=== PATIENT | male | born 1990 | race Caucasian/White ===

== ENCOUNTER 2018-02-13 14:56 | Emergency (ER) | payer OTHER ==
[~2018-02-13] VITALS: Ht 172.7 cm; Wt 104.8 kg
--- NOTE | 2018-02-13 15:00 | NUR ---
PT BIBRA FROM HOME TO ER BED 10. PRESENTS W/ L SHOULDER PAIN. POSSIBLE DISLOCATION. PT STATES MULTIPLE HX OF DISLOCATION. 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 AWAITING MD HERNADEZ.
[2018-02-13] MEDS ORDERED: ACETAMINOPHEN ES 500 MG TABLET ONE (15:53)
[2018-02-13] MEDS ORDERED: ACETAMINOPHEN ES 500 MG TABLET PO ONE (16:00)
--- NOTE | 2018-02-13 16:31 | NUR ---
L SHOULDER MANUALLY REDUCED BY ERMD. SHOULDER IMMOBILIZER APPLIED. PT D/C HOME ,IN STABLE CONDITION.
[2018-02-13 16:33] VITALS: BP 135/84
== END 2018-02-13 17:02 | disposition home or self-care (01) ==
LOC: ER 16:08
DX: S43.085A Other dislocation of left shoulder joint, initial encounter (principal); J45.909 Unspecified asthma, uncomplicated; X58.XXXA Exposure to other specified factors, initial encounter; Y93.89 Activity, other specified; Y92.89 Other specified places as the place of occurrence of the external cause; Y99.8 Other external cause status
CPT/HCPCS: A4606; Z7610

== ENCOUNTER 2018-05-30 06:55 | Emergency (ER) | payer OTHER ==
[~2018-05-30] VITALS: Ht 172.7 cm; Wt 108.0 kg
--- NOTE | 2018-05-30 07:15 | NUR ---
BIB FRIEND. C/O "NOTICED B L E SWELLING AFTER SMOKING POT" -SOB. -N/V , TO ER BED 2, HOOKED TO MONITOR, PROVIDED WITH WARM BLANKET, DR WILLOUGHBY AT BEDSIDE FOR EVAL.
[2018-05-30 07:51] VITALS: BP 143/68
--- NOTE | 2018-05-30 08:15 | NUR ---
US TECH AT BEDSIDE
== END 2018-05-30 08:36 | disposition home or self-care (01) ==
LOC: ER 07:02
DX: R60.0 Localized edema (principal); J45.909 Unspecified asthma, uncomplicated; F32.9 Major depressive disorder, single episode, unspecified; F41.9 Anxiety disorder, unspecified; F84.0 Autistic disorder
CPT/HCPCS: 93970-TC